=== PATIENT | male | born 1930 | race Caucasian/White ===

== ENCOUNTER → 2017-01-11 | Outpatient (CLI) | payer MEDICARE, OTHER ==
--- NOTE | 2017-01-11 15:00 | ST Modified Barium Swallow ---
Recommendation - Recommendations Recommendations: 1. Recommend medical team discuss options for diet changes to reduce aspiration and risk of aspiration while maintaining nutrition and hydration. 2. Recommend speech therapy after discharge for dysphagia management. Medical Diagnoses - Medical Diagnoses Medical Diagnosis Description & ICD-10 Code(s): Dysphagia Other Medical Diagnoses/Co-Morbidities: Prior strokes - most recent 2013. NPO since 01/08/17. - ICD-10 Tx Diagnosis Coding (1) Dysphagia as late effect of cerebrovascular accident (CVA) ICD-10 Code(s): I69.391 - DYSPHAGIA FOLLOWING CEREBRAL INFARCTION (2) Dysphagia, oral phase ICD-10 Code(s): R13.11 - DYSPHAGIA, ORAL PHASE (3) Dysphagia, oropharyngeal ICD-10 Code(s): R13.12 - DYSPHAGIA, OROPHARYNGEAL PHASE (4) Dysphagia, pharyngeal ICD-10 Code(s): R13.13 - DYSPHAGIA, PHARYNGEAL PHASE ST Modified Barium Swallow - General Date: 01/11/17 Referring Physician: Dr. Moffett (attending) Risks/Precautions: Falls, Aspiration Date of Onset: 01/08/17 Reason for Referral: dysphagia - History History obtained from: Other - EMR, report from [facility] transfer services and physician (phone consult 01/10/17) -: Medical - Patient admitted to [facility] for pneumonia, chest CT revealed concern for aspiration. Patient had prior stroke with residual expressive aphasia. Severely limited speech - only able to answer "yes ". History of speech therapy for aphasia. PMHx: prostate CA (recovered), strokes. Medications: levaquin, zetia, pravacol, claritin, flonase, lovenox, ibuprofen, tylenol, refresh, lidoderm, zosyn. Allergies: None reported. - Functional Status Prior Functional Status: INDEPENDENT: feeding. DEFICIT: communication Current Functional Limitations: communication, feeding - Subjective Patient/caregiver goal(s): r/o aspiration Speech Intelligibility: Aphasic - limited verbal responses - produced "yes" and "thank you" Current Nutritional Means: NPO Current PO diet: Regular - reported regular diet at home Current symptoms: Pneumonia Pain: 0/5 - Objective Assessment: Upright, Left Lateral - Food Trials Used Food trials used: Thin liquids, Honey-thickened liquids, Dickens thick liquids, Pureed, Soft solids The patient: fed by ST - Oral-Motor Skills Velo-pharyngeal function: Not assessed - Assessment Oral prep: Mildly Impaired Labial closure: Reduce closure Leakage: Anterior - with cup sips; able to acheive complete closure with straw Mastication: Adequate Lingual Movement: Normal - for this procedure Oral stage: Moderately Impaired - Pharyngeal Stage Initiation of Pharyngeal Stage Reflex: Delayed Decreased laryngeal elevation: Yes Reduced Velopharyngeal Closure: no Reduced pressure generation: Yes reduced tongue-based retraction: Yes Pre-swallow pooling in valleculae: Mild Pre-Swallow pooling in pyriforms: None Reduced Thyro-Hyoid approximation: Yes Reduced epiglottic excursion: Yes Reduced pharyngeal peristalsis/contraction: Yes Multiple Swallows with: Effective Post-swallow residulas vallecular: None Post-Swallow residuals in pyriforms: None Reduced Cricopharyngeal opening: No - Esophageal Stage Cricopharyngeal Function: Normal - Fall Risk Assessment Medications/Conditions that increase fall risks include: Antidepressants, sedatives, anti-arrhythmic, diuretic, benzodiazipenes, neuroleptics. BP regulation problems, cardiac problems, balance or gait deficits, neurological problems. Is patient considered at risk for falls: no Fall Risk Actions Taken: Pt physician notified - Behavioral Observations During evaluation process patient: was pleasant - Treatment / Educational Needs: Treatment/Education Needs: Treatment consisted of patient education on the role of the Speech Pathologist. Patient's plan of care and golas were communicated as well as scheduling and attendance policies. Recommendations for initial home program were shared. Patient demonstrated understanding and verbalized agreement. - Impression/Summary Laryngeal Penetration: Yes - silent penetration with thin by spoon & straw, nectar by straw, during swallow, after swallow Tracheal Aspiration: yes - with thin by straw sip, silent, during swallow, after swallow Productive cough: No Effective Clearing: no Patient presents with: Oral stage dysphagia, Pharyngeal stage dysph., Oral- Pharyngeal dysph., Severe Risk of Aspiration: Severe Risk of nutritional compromise: Severe Evaluation and Findings: Patient presents with impaired swallow resulting in penetration and aspiration. Patient unable to drink from cup without anterior spill. Trialed spoon and straw sip during study. THIN LIQUIDS: Demonstrated penetration with spoon sip and aspiration with straw sip. NECTAR THICK LIQUIDS : Penetration but no aspiration with straw sip. HONEY THICK LIQUIDS: No penetration or aspiration, however patient only able to use spoon sips (honey too thick to drink from straw). Honey has least risk of aspiration but is less hydrating and some evidence indicates patients on honey thick liquids have increased pneumonia (possibly because it's harder to clear if aspirated). PUREE : Patient demonstrated timely swallow with no residuals with pudding consistency. SOFT SOLIDS: Adequate chewing, no residuals with spontaneous second swallow. - Recommendations NPO: no Strict aspiration precautions: Yes Pt/Family education and followup with MD: Yes Dysphagia therapy with RESIDENT INSPECTOR: yes, dysphagia therapy - after discharge Recommended techniques: Fully Upright During Meal, Small Bites and Sips, Alternate Bites/Sips Supervision: Constant, requires assistance - would benefit from careful hand feeding to reduce risk of aspiration Other recommendations: DIET RECOMMENDATIONS: Recommend physician consider either thin liquids via spoon sip (no straws), nectar liquid liquids (will allow patient to continue using straw which appears to be preferred), or honey thick liquids via spoon with increased liquid intake as less hydrating. Discussed results and recommendations with Dr. Arita - physician to discuss options with family. Please contact Speech-Language Pathologist Guillermina Monsalve at [phone] with any questions. Thank you for allowing us to serve this patient. - Time Total Time: 15 - Plan of Care Strategies to optimize patient understanding include:: ongoing assessment of educational needs, implementation of educational strategies, and re-education. - - -: Thank you for the opportunity to work with this patient and his/her family. Should you have any questions about this patient's plan or progress, I can be reached at [phone]. Charge G Code? - - -: Yes ST F.L. Impairment Category - Rationale Based On Rationale Based On: Clin Find., Obj Measures - Swallowing Current G8996: CL 60-79% Impaired Goal G8997: CL 60-79% Impaired Discharge G8998: CL 60-79% Impaired - Spoken Language Expression Current G9162: None Goal G9163: None Discharge G9164: None
--- NOTE | 2017-01-14 09:04 | RADIOLOGY REPORT (SQ) ---
EXAM DESCRIPTION: MARIA L SWALLOW COMPLETED DATE/TIME: 01/11/2017 1:26 pm REASON FOR STUDY: DYSPHAGIA (R13.10)DYSPHAGIA FOLLOWING CVA I69.391 R13.10 DYSPHAGIA, UNSPECIFIED COMPARISON: None. TECHNIQUE: Videofluoroscopic swallowing examination was performed in conjunction with speech patholo gy. Videofluoroscopic imaging was obtained and reviewed and these are the findings: RADIATION DOSE: TOTAL FLUOROSCOPY TIME: 2 MIN 9 SECONDS LIMITATIONS: None FINDINGS: The patient was brought into the fluoro room and placed upright on a modified barium swall ow chair. The patient was then given multiple consistencies mixed with barium to swallow under live fluoroscopic video guidance. According to the Speech Pathologist there was laryngeal penetration wit h multiple consistencies. Tracheal aspiration was seen with thin liquids and post swallow residual ma terials. Mild oral and pharyngeal phase delay with premature spillage is noted. Mild post swallow r esiduals seen. Please see speech pathology report for further details and recommendations. IMPRESSION: LARYNGEAL PENETRATION MULTIPLE CONSISTENCIES AND TRACHEAL ASPIRATION WITH THIN LIQUIDS A ND POST SWALLOW RESIDUALS. PLEASE SEE SPEECH PATHOLOGIST REPORT FOR OTHER FINDINGS AND RECOMMENDATION S. COMMENT: Quality ID [id number]: Final reports for procedures using fluoroscopy that document radiation exp osure indices, or exposure time and number of fluorographic images (if radiation exposure indices are not available) TECHNICAL DOCUMENTATION: JOB ID: [id number] [employer]- All Rights Reserved
== END ==
LOC: RAD 12:51
DX: R13.10 Dysphagia, unspecified (principal)
CPT/HCPCS: 74230; 92611; G8996; G8997; G8998

== ENCOUNTER 2017-08-22 16:07 | Emergency (ER) | payer MEDICARE, OTHER ==
--- NOTE | 2017-08-22 18:37 | ER Document Report ---
ED General - General Chief Complaint: Problem with Urinary Catheter Stated Complaint: CATHETER PROBLEM Time Seen by Provider: 08/22/17 18:19 Cannot obtain history due to: Dementia Notes: Patient is an 87-year-old male with a past medical history of advanced dementia , nonverbal, suprapubic catheter dependent due to recurrent urinary tract infections who presents with no urine output from the suprapubic catheter. Patient does still put urine out from his urethra. He was sent to the emergency department by his nursing facility for catheter change out. No apparent additional concerns. Patient is nonverbal and unable to provide any additional history. at the bedside states that he is not acting like he usually does when he has a urinary tract infection. TRAVEL OUTSIDE OF THE [place] IN LAST 30 DAYS: No - Related Data Allergies/Adverse Reactions: No Known Allergies Allergy (Verified 08/22/17 17:40) Past Medical History - General Information source: Relative Cannot obtain history due to: Dementia - Social History Smoking Status: Former Smoker Frequency of alcohol use: None Drug Abuse: None Lives with: [facility] Family History: Reviewed & Not Pertinent Patient has suicidal ideation: No Patient has homicidal ideation: No Renal/ Medical History: Denies: Hx Peritoneal Dialysis Review of Systems - Review of Systems -: Yes ROS unobtainable due to patient's medical condition Physical Exam - Vital signs Vitals: Temp Pulse Resp BP Pulse Ox 98.7 F 79 18 113/46 L 95 08/22/17 16:15 08/22/17 16:15 08/22/17 16:15 08/22/17 16:15 08/22/17 16:15 Interpretation: Normal Notes: PHYSICAL EXAMINATION: GENERAL: No acute distress HEAD: Atraumatic, normocephalic. EYES: Pupils equal round and reactive to light, extraocular movements intact, sclera anicteric, conjunctiva are normal. ENT: nares patent, oropharynx clear without exudates. Moderately dry mucous membranes. NECK: Normal range of motion, supple without lymphadenopathy LUNGS: Breath sounds clear to auscultation bilaterally and equal. No wheezes rales or rhonchi. HEART: Regular rate and rhythm without murmurs ABDOMEN: Soft, nontender, normoactive bowel sounds. No guarding, no rebound. No masses appreciated. Suprapubic catheter in place without surrounding erythema or purulent drainage. EXTREMITIES: Normal range of motion, no pitting or edema. No cyanosis. NEUROLOGICAL: No focal neurological deficits. Moves all extremities spontaneously. PSYCH: Non-verbal SKIN: Warm, Dry, normal turgor, no rashes or lesions noted. Course - Re-evaluation Re-evalutation: 08/22/17 18:36 Patient presents with a suprapubic catheter that is no longer functioning. Patient is nonverbal and apparently has no additional concerns per family. Patient is not at risk for urinary obstruction as he does still pass urine freely from his urethra into the diaper and had a superpubic catheter placed for concerns of recurrent urinary tract infections. The catheter is been in place for approximately 1 month. Will attempt to replace the catheter at the bedside. No urology available. 08/22/17 20:07 Unfortunately we do not have any available suprapubic catheters that would fit the patient's tube or the next 2 sizes. I explained this to the at the bedside and we have agreed to place a Louie catheter for the patient's comfort, leaving the existing suprapubic catheter in place so as to not allow the tract to close and then have an outpatient follow-up for a replacement of the suprapubic catheter as well as removal of the current Louie catheter. Urinalysis obtained as a clean-catch from the inserted Louie catheter shows obvious signs of infection. Patient was started on a seven-day course of cephalexin. At this time will discharge with return precautions and follow-up recommendations. Verbal discharge instructions given a the bedside and opportunity for questions given. Medication warnings reviewed. is in agreement with this plan and has verbalized understanding of return precautions and the need for primary care follow-up in the next 24-72 hours. - Vital Signs Vital signs: Temp Pulse Resp BP Pulse Ox 98.7 F 79 18 113/46 L 95 08/22/17 16:15 08/22/17 16:15 08/22/17 16:15 08/22/17 16:15 08/22/17 16:15 - Laboratory Laboratory results interpreted by me: 08/22/17 22:15 Urine Protein 100 H Urine Blood LARGE H Ur Leukocyte Esterase LARGE H Discharge - Discharge Clinical Impression: Malfunction of indwelling urinary catheter Qualifiers: Encounter type: initial encounter Qualified Code(s): T83.011A - Breakdown ( mechanical) of indwelling urethral catheter, initial encounter Catheter-associated urinary tract infection Qualifiers: Indwelling urinary catheter type: indwelling urethral catheter Encounter type: initial encounter Qualified Code(s): T83.511A - Infection and inflammatory reaction due to indwelling urethral catheter, initial encounter; N39.0 - Urinary tract infection, site not specified; N39.0 - Urinary tract infection, site not specified Condition: Good Disposition: HOME, SELF-CARE Additional Instructions: Unfortunately we do not have any improper sizes of suprapubic catheters to replace your 's catheter a Louie catheter has been placed to provide comfort and can be removed once a suprapubic catheter is available for replacement of the existing catheter. The urine obtained from the Louie catheter does show an obvious infection and he has been started on antibiotics. Please follow-up with his urologist for proper placement of the suprapubic catheter. Prescriptions: Cephalexin Monohydrate [Keflex 500 mg Capsule] 500 mg PO Q6H 7 Days capsule Referrals: KASEY KENDRICK MD [Primary Care Provider] - Follow up in 3-5 days
[2017-08-22 23:10] LABS: APPEARANCE,URINE CLOUDY; BILIRUBIN,URINE NEGATIVE (NEGATIVE); COLOR,URINE YELLOW; GLUCOSE, URINE NEGATIVE (NEGATIVE); KETONES,URINE NEGATIVE (NEGATIVE); LEUKOCYTE ESTERASE,URINE LARGE (NEGATIVE); NITRITE,URINE NEGATIVE (NEGATIVE); PROTEIN,URINE 100 mg/dL (NEGATIVE); URINE SPECIFIC GRAVITY 1.015; UROBILINOGEN,URINE NEGATIVE mg/dL (<2.0)
[2017-08-22] MEDS ORDERED: CEPHALEXIN 500 MG CAPSULE PO ONE (23:28)
[2017-08-23 00:51] VITALS: BP 102/55
== END 2017-08-23 01:15 | disposition home or self-care (01) ==
LOC: ER 16:07
DX: T83.011A Breakdown (mechanical) of indwelling urethral catheter, initial encounter (principal); T83.511A Infection and inflammatory reaction due to indwelling urethral catheter, initial encounter; N39.0 Urinary tract infection, site not specified; Z87.891 Personal history of nicotine dependence
CPT/HCPCS: 99284; 51702; 36415; 87086; 87088; 81001; 87186; A9270

== ENCOUNTER 2017-08-23 10:30 | Emergency (ER) | payer MEDICARE, OTHER ==
--- NOTE | 2017-08-23 11:48 | ER Document Report ---
ED GI/ - General Mode of Arrival: Medic Information source: Emergency Med Personnel, [facility] Records Cannot obtain history due to: Dementia TRAVEL OUTSIDE OF THE [place] IN LAST 30 DAYS: No - General Chief Complaint: Problem with Urinary Catheter Stated Complaint: GROIN PAIN Time Seen by Provider: 08/23/17 10:54 Notes: Patient is an 87 year old male with advanced dementia that presents to the emergency department today after his halfway noticed blood coming from his suprapubic catheter. Patient was here yesterday for no urinary output out of suprapubic catheter. Patient is currently on Keflex for a UTI. History is limited secondary to patient's dementia. (ZAID KIMBLE) - Related Data Allergies/Adverse Reactions: No Known Allergies Allergy (Verified 08/22/17 17:40) Past Medical History - General Information source: [facility] Records Cannot obtain history due to: Dementia - Social History Smoking Status: Former Smoker Cigarette use (# per day): No Frequency of alcohol use: None Drug Abuse: None Lives with: [facility] Family History: Reviewed & Not Pertinent Review of Systems - Review of Systems -: Yes ROS unobtainable due to patient's medical condition - demented, non- verbal according to records Physical Exam - Vital signs Vitals: Temp Pulse Resp BP Pulse Ox 98.2 F 87 14 106/53 L 93 08/23/17 10:46 08/23/17 10:46 08/23/17 10:46 08/23/17 10:46 08/23/17 10:46 - Notes Notes: PHYSICAL EXAM GENERAL: Alert, does not appear to be in pain until suprapubic catheter was flushed. HEAD: Normocephalic, atraumatic. EYES: Pupils equal, round, and reactive to light. Extraocular movements intact. ENT: Oral mucosa moist, tongue midline. NECK: Full range of motion. Supple. Trachea midline. LUNGS: No respiratory distress. ABDOMEN: Soft, non-tender. Non-distended. Suprapubic catheter in place. Bowel sounds present in all 4 quadrants. MALE GENITOURINARY: No house catheter in place. Hypospadias with blood at the tip of the urethra. Blood and sediment in the suprapubic catheter. Moderate sized clot flushed out with initial suprapubic catheter flushing. Suprapubic catheter flushed using 300 mL of normal saline, well-tolerated, urinating freely after flush. EXTREMITIES: Moves all 4 extremities spontaneously. No edema. No cyanosis. NEUROLOGICAL: Alert, disoriented consistent with dementia history. PSYCH: Pleasant, able to state "yeah" when asked if in pain, does not answer any other questions, advanced dementia at baseline according to records. SKIN: Warm, dry, normal turgor. No rashes or lesions noted. (ZAID KIMBLE) - Re-evaluation Re-evalutation: 08/23/17 12:02 Oddly the patient only has a suprapubic catheter, there is no urethral House catheter. Patient is draining urine through his urethra. There is no evidence of obstruction, there is a large clot at the urethral meatus. I did irrigate the suprapubic catheter with 300 mL's of saline, a moderate-sized clot was obtained and then the rest of the irrigant drained without difficulty. Patient only appeared uncomfortable while he was actively irrigating it, that he started urinating through his urethra without any difficulty. Patient will be discharged back to the halfway with instructions to irrigate the suprapubic catheter with 300 mL of saline every 8 hours. Patient is still requested to follow-up with his urologist as soon as possible as an outpatient. Patient is already taking antibiotics for his urinary tract infection, cultures from the urine have already been sent as of last night. long-term currently denies that the patient arrived with a House catheter in place however the note from the physician who saw him last night states that he inserted a urethral catheter in addition to the suprapubic catheter. It is possible that this increased bleeding is caused from the fact that he ripped out his own catheter. 08/23/17 12:08 After discussing with the halfway again halfway states that at the halfway they noticed the House catheter was group home out so they just removed the rest of the way. They are not certain if he may have pulled the House catheter out partway after leaving or if while he was being changed it may have been pulled partway by an aide. This certainly helps to explain the hematuria. (BRYANT SERNA) - Vital Signs Vital signs: Temp Pulse Resp BP Pulse Ox 97.5 F 76 16 116/52 L 94 08/23/17 13:53 08/23/17 13:53 08/23/17 13:53 08/23/17 13:53 08/23/17 13:53 Discharge - Discharge Clinical Impression: Hematuria Qualifiers: Hematuria type: gross Qualified Code(s): R31.0 - Gross hematuria Malfunction of indwelling urinary catheter Qualifiers: Encounter type: subsequent encounter Qualified Code(s): T83.011D - Breakdown ( mechanical) of indwelling urethral catheter, subsequent encounter Condition: Stable Disposition: HOME, SELF-CARE Additional Instructions: Please irrigate his catheter using the syringe was sent with at least 300 mL of saline every 8 hours. You may do it more often if you notice it is obstructed. When we irrigated it here in the emergency department he had mild discomfort and immediately fluid drained out of his penis. You will likely see some clots come out of his penis. If the catheter stops draining and you cannot get any fluid out of his penis as well when you irrigate the catheter please return to the emergency department. Otherwise please follow-up with his urologist within the next 4 days. Referrals: KASEY KENDRICK MD [Primary Care Provider] - Follow up as needed Scribe Attestation: 08/23/17 19:42 I personally performed the services described in the documentation, reviewed and edited the documentation which was dictated to the scribe in my presence, and it accurately records my words and actions. (BRYANT SERNA) Scribe Documentation - Scribe Written by Scribe:: Adela Dudley, 08/23/2017 1310 acting as scribe for :: Anand
[2017-08-23 13:58] VITALS: BP 116/52
== END 2017-08-23 13:58 | disposition home or self-care (01) ==
LOC: ER 10:30
DX: T83.011A Breakdown (mechanical) of indwelling urethral catheter, initial encounter (principal); Y73.8 Miscellaneous gastroenterology and urology devices associated with adverse incidents, not elsewhere classified; Y84.6 Urinary catheterization as the cause of abnormal reaction of the patient, or of later complication, without mention of misadventure at the time of the procedure; N39.0 Urinary tract infection, site not specified; R31.0 Gross hematuria; F03.90 Unspecified dementia, unspecified severity, without behavioral disturbance, psychotic disturbance, mood disturbance, and anxiety; Z87.891 Personal history of nicotine dependence
CPT/HCPCS: 99283

== ENCOUNTER 2017-11-20 02:46 | Inpatient (IN) | payer MEDICARE, OTHER ==
[2017-11-20] MEDS ORDERED: ROCURONIUM BROMIDE INJ 50 MG/5 ML VIAL IV ONE ×2 (02:53→12:40)
[2017-11-20] MEDS ORDERED: ETOMIDATE INJ/PF 20 MG/10 ML SDV IV ONE (02:53)
[2017-11-20] MEDS ORDERED: MIDAZOLAM 2 MG/2 ML INJ ONE (02:53)
[2017-11-20] MEDS ORDERED: MIDAZOLAM 2 MG/2 ML INJ IV ONE (02:54)
[2017-11-20] MEDS ORDERED: MIDAZOLAM HCL 50 MG/100 ML RTUINJ IV PRN ×2 (02:54→09:45)
[2017-11-20] MEDS ORDERED: ACETAMINOPHEN 650 MG SUPP.RECT PR ONE (02:55)
[2017-11-20] MEDS ORDERED: MIDAZOLAM HCL 50 MG/100 ML RTUINJ IV ONE (02:56)
[2017-11-20] MEDS ORDERED: VANCOMYCIN HCL INJ 1000 MG VIAL IV ONE (02:59)
[2017-11-20] MEDS ORDERED: PIPERACILLIN/TAZOBACTAM 4.5 GM VIAL IV ONE (02:59)
--- NOTE | 2017-11-20 02:59 | ER Document Report ---
ED General - General Chief Complaint: Respiratory Distress Stated Complaint: ALTERED MENTAL STATUS Time Seen by Provider: 11/20/17 02:53 Notes: Patient is a 7-year-old male who presents with sepsis and difficulty breathing. He has been treated for UTI over last several days. He does have a suprapubic catheter in place. When the paramedics arrived to the correction the patient's oxygen saturation was 60%. Paramedics reports that the correction said the patient is a full code. Patient is unresponsive and being manually ventilated by the paramedics when he arrived. TRAVEL OUTSIDE OF THE [place] IN LAST 30 DAYS: No - Related Data Allergies/Adverse Reactions: No Known Allergies Allergy (Verified 08/22/17 17:40) Past Medical History - Social History Smoking Status: Unknown if Ever Smoked Frequency of alcohol use: None Drug Abuse: None Family History: Reviewed & Not Pertinent - Past Medical History Cardiac Medical History: Reports: Hx Hypercholesterolemia Endocrine Medical History: Reports: Hx Diabetes Mellitus Type 2 Renal/ Medical History: Denies: Hx Peritoneal Dialysis Review of Systems - Review of Systems -: Yes ROS unobtainable due to patient's medical condition - Patient is unresponsive and unable to contribute Physical Exam - Vital signs Vitals: Temp Pulse Resp BP Pulse Ox 103.7 F H 140 H 45 H 99/50 L 90 L 11/20/17 02:46 11/20/17 02:46 11/20/17 02:46 11/20/17 02:46 11/20/17 02:46 - Notes Notes: General Appearance: Poorly responsive and does not follow commands., severe acute distress, no obvious discomfort. Vitals: reviewed, See vital signs table. Head: no swelling or tenderness to the head Eyes: PERRL, EOMI, Conjuctiva clear Mouth: Tacky mucous membranes Throat: No tonsillar inflammation, No airway obstruction, No lymphadenopathy Neck: Supple, no neck tenderness, No thyromegaly Lungs: No wheezing, No rales, No rhonci, No accessory muscle use, good air exchange bilaterally. Heart: Tachycardic rate, Regular rythm, No murmur, no rub Abdomen: Normal BS, soft, No rigidity, No abdominal tenderness, No guarding, no rebound, no abdominal masses, no organomegaly. Superpubic catheter in place. No redness or swelling around the catheter site. Extremities:, good pulses in all extremities, no swelling or tenderness in the extremities, no edema. Skin: warm, dry, appropriate color, no rash Neuro: The only command that can get the patient to follow his I asked him to open his eyes and he barely moves his eyelids. 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 He is almost completely unresponsive. Course - Re-evaluation Re-evalutation: 11/20/17 03:30 Patient comes from correction septic appearing with fever of 103 and hypotension and hypoxemia. He was very poorly responsive and hypoxic at times despite manual ventilation. We therefore intubated the patient. Report from the paramedics was at the correction said he was a full code. Current receiving IV fluids to support his blood pressure. I did speak with the and daughter who have just arrived. He said he does have a living will. Is not clear if he is truly full code or DNR as the daughter mentions that they think he is a DO NOT RESUSCITATE however they want him to remain on the ventilator and to receive eczema treatment including pressors at this time. 11/20/17 03:53 Patient's blood pressure remains low despite receiving IV fluids. I went back and spoke with and the daughter informed him that I think it is a low likelihood that he will pull-through this pain that he is 87-year-old old and already has a lot of comorbidities. They are understanding of this. They still want medicative treatment however the do not want CPR if his heart is to stop. Will make patient a DNR but not yet comfort care. 11/20/17 05:45 Central line was placed. Patient has been started on pressors. I did speak with Dr. Morillo, patient's primary care doctor, who agrees with the patient to the hospital. Antibiotics have been given. Patient's lung herrera remain clear. His blood pressure is improved with Levophed. His good capillary refill. Good peripheral pulses. 11/20/17 05:45 Dictation of this chart was performed using voice recognition software; therefore, there may be some unintended grammatical errors. - Vital Signs Vital signs: Temp Pulse Resp BP Pulse Ox 103.7 F H 140 H 16 95/53 L 100 11/20/17 02:46 11/20/17 02:46 11/20/17 04:46 11/20/17 04:45 11/20/17 04:46 - Laboratory Result Diagrams: 11/20/17 02:45 11/20/17 02:45 Laboratory results interpreted by me: 11/20/17 11/20/17 11/20/17 02:45 02:45 02:45 WBC 29.8 H RDW 15.0 H Plt Count 532 H Seg Neuts % (Manual) 93 H Lymphocytes % (Manual) 6 L Monocytes % (Manual) 1 L Abs Neuts (Manual) 27.7 H Chloride 108 H Glucose 136 H Lactic Acid 3.4 H Direct Bilirubin 0.5 H Total Protein 5.7 L Albumin 2.9 L Urine Protein Ur Leukocyte Esterase Urine Ascorbic Acid 11/20/17 02:45 WBC RDW Plt Count Seg Neuts % (Manual) Lymphocytes % (Manual) Monocytes % (Manual) Abs Neuts (Manual) Chloride Glucose Lactic Acid Direct Bilirubin Total Protein Albumin Urine Protein >=500 H Ur Leukocyte Esterase LARGE H Urine Ascorbic Acid 20 H - EKG Interpretation by Me Additional EKG results interpreted by me: 11/20/17 02:58 EKG is reviewed and interpreted by me. EKG shows sinus tachycardia with rate of 126 bpm. Patient does not have any ST segment elevation. He does have findings consistent with right bundle branch block. [place] interval is within normal range. QRS duration QTc intervals are prolonged. No old EKG available for comparison. 11/20/17 03:00 Procedures - Central Line Left Internal jugular Consent obtained: Yes - verbal from Central line pre-insertion: Chloraprep applied Central line lumen type: Triple Anesthetic type: 1% Lidocaine mL's of anesthesia: 2 Ultrasound guided: Yes CM at insertion site: 17 Line secured with sutures: Yes Central line post-insertion: Blood return from lumens, Biopatch applied, Sutured , Sterile dressing applied, Position confirmed w/ CXR Number of attempts: 1 Complications: No Critical Care Note - Critical Care Note Total time excluding time spent on procedures (mins): 45 Comments: Critical care time for the patient not including time spent on procedures approximately 45 minutes due to frequent re-evaluations and management of septic shock. Discharge - Discharge Clinical Impression: Septic shock Sepsis Qualifiers: Sepsis type: sepsis due to unspecified organism Qualified Code(s): A41.9 - Sepsis, unspecified organism Respiratory failure Qualifiers: Chronicity: acute Respiratory failure complication: hypoxia Qualified Code(s): J96.01 - Acute respiratory failure with hypoxia Condition: Stable Disposition: ADMITTED INPATIENT Admitting Provider: [facility] Admitted: ICU
[2017-11-20 03:11] LABS: VENOUS BLOOD BASE EXCESS -1.6 mmol/L; VENOUS BLOOD PCO2 43.5 mmHg (35-63); VENOUS BLOOD PH 7.36 (7.30-7.42)
[2017-11-20 03:12] LABS: HEMATOCRIT 46.7 % (37.9-51.0); HEMOGLOBIN 15.3 g/dL (13.5-17.0); MEAN CORPUSCULAR HEMOGLOBIN 28.8 pg (27.0-33.4); MEAN CORPUSCULAR HGB CONC 32.8 g/dL (32.0-36.0); MEAN CORPUSCULAR VOLUME 88 fl (80-97); PLATELET COUNT 532 10^3/uL (150-450); RED BLOOD COUNT 5.32 10^6/uL (4.35-5.55); WHITE BLOOD COUNT 29.8 10^3/uL (4.0-10.5)
--- NOTE | 2017-11-20 03:13 | RADIOLOGY REPORT (SQ) ---
EXAM DESCRIPTION: CHEST SINGLE VIEW CLINICAL HISTORY: fever COMPARISON: None. FINDINGS: Single frontal view of the chest. Endotracheal tube with tip 4 cm above the amanda. NG tube with tip and side-port below the diaphragm. Heart is not enlarged. No pneumothorax. Low lung volumes. Streaky bibasilar opacities. Right-sided skin fold. No acute osseous abnormality. Upper abdominal soft tissues are unremarkable. IMPRESSION: 1. Low lung volumes with streaky bibasilar opacities which may be related to atelectasis however developing pneumonic process could produce a similar appearance. 2. Visualized tubes and lines in appropriate radiographic position.
[2017-11-20 03:14] LABS: APPEARANCE,URINE TURBID; COLOR,URINE LIGHT YELLOW; GLUCOSE, URINE NEGATIVE (NEGATIVE)
[2017-11-20 03:15] LABS: BILIRUBIN,URINE NEGATIVE (NEGATIVE); KETONES,URINE NEGATIVE (NEGATIVE); NITRITE,URINE NEGATIVE (NEGATIVE); PROTEIN,URINE >=500 mg/dL (NEGATIVE); URINE SPECIFIC GRAVITY 1.021; UROBILINOGEN,URINE NEGATIVE mg/dL (<2.0)
[2017-11-20 03:16] LABS: LEUKOCYTE ESTERASE,URINE LARGE (NEGATIVE)
[2017-11-20 03:17] LABS: TRIPLE PHOSPHATE CRYSTAL,URINE FEW /HPF
[2017-11-20 03:18] LABS: ALANINE AMINOTRANSFERASE 39 U/L (21-72); ALBUMIN 2.9 g/dL (3.5-5.0); ALKALINE PHOSPHATASE 105 U/L (38-126); ANION GAP 10 (5-19); ASPARTATE AMINO TRANSFERASE 23 U/L (17-59); BILIRUBIN,DIRECT 0.5 mg/dL (0.0-0.4); BILIRUBIN,TOTAL 0.8 mg/dL (0.2-1.3); BLOOD UREA NITROGEN 18 mg/dL (7-20); CALCIUM 9.3 mg/dL (8.4-10.2); CARBON DIOXIDE 23 mmol/L (22-30); CHLORIDE 108 mmol/L (98-107); GLUCOSE 136 mg/dL (75-110); POTASSIUM 4.2 mmol/L (3.6-5.0); SODIUM 141.1 mmol/L (137-145); TOTAL PROTEIN 5.7 g/dL (6.3-8.2)
[2017-11-20 03:35] LABS: ABSOLUTE LYMPHOCYTES# (MANUAL) 1.8 10^3/uL (0.5-4.7); ABSOLUTE MONOCYTES # (MANUAL) 0.3 10^3/uL (0.1-1.4); ABSOLUTE NEUTROPHILS# (MANUAL) 27.7 10^3/uL (1.7-8.2); BASOPHILS % (MANUAL) 0 % (0-2); EOSINOPHILS % (MANUAL) 0 % (0-6); LYMPHOCYTES % (MANUAL) 6 % (13-45); MONOCYTES % (MANUAL) 1 % (3-13); SEGMENTED NEUTROPHILS % (MAN) 93 % (42-78); TOTAL CELLS COUNTED 100
[2017-11-20 03:42] LABS: ANISOCYTOSIS SLIGHT; PLATELET CLUMPS PRESENT; PLATELET COMMENT ADEQUATE; PLATELET GIANT PRESENT; PLATELET LARGE PRESENT; POIKILOCYTOSIS SLIGHT; TEAR DROP CELLS 1+; TOXIC GRANULATION 1+
[2017-11-20] MEDS ORDERED: DEXTROSE 5%-WATER 250 ML with NOREPINEPHRINE BITARTRATE 4 MG IV PRN ×2 (03:50)
[2017-11-20] MEDS ORDERED: NOREPINEPHRINE BITARTRATE INJ/PF 4 MG/4 ML SDV IV ONE ×2 (03:56→21:32)
--- NOTE | 2017-11-20 05:38 | RADIOLOGY REPORT (SQ) ---
EXAM DESCRIPTION: CHEST SINGLE VIEW CLINICAL HISTORY: central line placement COMPARISON: 11/20/2017 FINDINGS: Single frontal view of the chest. Endotracheal tube and NG tube are stable. Interval placement of left IJ central venous catheter with tip overlying the SVC. Interval increase in right pleural effusion. No pneumothorax. Small left pleural effusion. Heart is not enlarged. No new osseous abnormalities. Upper abdominal soft tissues are unremarkable. IMPRESSION: 1. Left IJ central venous catheter with tip overlying the SVC. Remaining tubes and lines are in stable position. 2. Interval increase in moderate right and small left pleural effusion.
[2017-11-20 08:21] LABS: PHOSPHORUS 2.1 mg/dL (2.5-4.5)
[2017-11-20 08:24] LABS: AMYLASE < 30 U/L (30-110)
[2017-11-20 08:34] LABS: CREATINE KINASE MB 1.93 ng/mL (<4.55); TROPONIN I 0.082 ng/mL
[2017-11-20 08:37] LABS: FREE T4 (FREE THYROXINE) 1.16 ng/dL (0.78-2.19)
[2017-11-20] MEDS ORDERED: NORMAL SALINE INJ/PF 0.9% 10 ML SDV IV PRN (08:39)
[2017-11-20 08:51] LABS: THYROID STIMULATING HORMONE 1.17 uIU/mL (0.47-4.68)
[2017-11-20 08:55] LABS: ARTERIAL BLOOD BASE EXCESS -4.3 mmol/L; ARTERIAL BLOOD FIO2 60%; ARTERIAL BLOOD H2CO3 0.95 mmol/L (1.05-1.35); ARTERIAL BLOOD HCO3 19.3 mmol/L (20-26); ARTERIAL BLOOD O2 SATURATION 92.1 % (94-98); ARTERIAL BLOOD PCO2 31.6 mmHg (35-45); ARTERIAL BLOOD PO2 61.7 mmHg (80-100); ARTERIAL BLOOD TOTAL CO2 20.2 mmol/L (23-27)
[2017-11-20] MEDS ORDERED: DEXTROSE 5%-WATER 250 ML with VASOPRESSIN 100 UNIT IV PRN ×2 (09:48)
[2017-11-20] MEDS: DEXTROSE 5%-WATER 250 ML with NOREPINEPHRINE BITARTRATE 4 MG IV PRN ×4 (10:38→16:20)
[2017-11-20] MEDS: NORMAL SALINE 1000 ML 1,000 ML IV PRN ×2 (10:38→17:53)
[2017-11-20] MEDS: ERTAPENEM SODIUM 1 GM in NORMAL SALINE 50 ML IV SCH (10:38)
[2017-11-20] MEDS: ENOXAPARIN SODIUM INJ 40 MG/0.4 ML DISP.SYRIN SUBCUT SCH (10:39)
--- NOTE | 2017-11-20 13:09 | PDOC CONSULTATION ---
Consultation Consult Date: 11/20/17 Attending physician:: KASEY KENDRICK Consult reason:: Acute on chronic respiratory failure History of Present Illness Admission Date/PCP: 11/20/17 06:09 KASEY KENDRICK MD History of Present Illness: RONAK JOYNER is a 87 year old male Resident of [facility] was found down for unknown amount of time was subsequently brought to the emergency room unresponsive and was intubated patient's had a long history of CVAs was not particularly interactive with his environment prior to these events.He is currently intubated and sedated in the ICU Past Medical History Cardiac Medical History: Reports: Hyperlipidema Endocrine Medical History: Reports: Diabetes Mellitus Type 2 Social History Information Source: Relative, COUNT INCLUDES THE [facility] Records Smoking Status: Former Smoker Passive smoke exposure as: Both Hx Prescription Drug Abuse: No Do you have pets?: No Have you had any respiratory illnesses as a child?: No Have you had any recent respiratory illnesses?: No Have you travelled outside of [place] in the past 12 months?: No Family History Parental Family History Reviewed: No Children Family History Reviewed: No Sibling(s) Family History Reviewed.: No Medication/Allergy Home Medications: Cranberry Fruit Extract [Cranberry 200 mg Capsule] 400 mg PO DAILY 11/20/17 Finasteride [Proscar 5 mg Tablet] 5 mg PO DAILY 11/20/17 Fluticasone Propionate [Flonase Nasal [place] 50 Mcg/Novinger 16 gm] 1 spray NASL DAILY 11/20/17 Loratadine [Claritin 10 mg Tablet] 10 mg PO DAILY 11/20/17 Polyethylene Glycol 3350 [Miralax Powder 17 gm/Packet] 1 packet PO DAILY Polyvinyl Alcohol [Artificial Tears] 1 drop OU BID 11/20/17 Tamsulosin HCl [Flomax 0.4 mg Cap.sr] 0.4 mg PO DAILY 11/20/17 Allergies/Adverse Reactions: No Known Allergies Allergy (Verified 08/22/17 17:40) Review of Systems ROS unobtainable: Due to endotracheal tube, Due to mental status Physical Exam Vital Signs: Temp Pulse Resp BP Pulse Ox 99.6 F 140 H 23 H 92/55 L 94 11/20/17 05:39 11/20/17 02:46 11/20/17 07:45 11/20/17 07:45 11/20/17 07:45 General appearance: PRESENT: no acute distress, disheveled, well-developed, well -nourished. ABSENT: cooperative Head exam: PRESENT: atraumatic, normocephalic Eye exam: PRESENT: conjunctiva pale. ABSENT: EOMI, nystagmus, periorbital swelling, scleral icterus Mouth exam: PRESENT: dry mucosa, moist, tongue midline, other - ET tube in place Neck exam: ABSENT: carotid bruit, JVD, lymphadenopathy, thyromegaly, tracheal deviation, tracheostomy Respiratory exam: PRESENT: decreased breath sounds, prolonged expiratory phas, rhonchi, symmetrical, unlabored. ABSENT: rales, retraction, stridor, tachypnea Cardiovascular exam: PRESENT: RRR, +S1, +S2, tachycardia Pulses: PRESENT: normal radial pulses GI/Abdominal exam: PRESENT: diminished bowel sounds, soft Extremities exam: ABSENT: clubbing, full ROM, joint swelling Musculoskeletal exam: ABSENT: ambulatory, deformity, dislocation, full ROM Neurological exam: ABSENT: awake, oriented to person Skin exam: PRESENT: dry, warm Results Laboratory Results: 11/20/17 11/20/17 11/20/17 06:50 07:42 07:42 Lactic Acid 2.6 H Phosphorus 2.1 L Magnesium 1.6 Ammonia < 8.7 L Amylase < 30 L Lipase 26.0 11/20/17 11/20/17 07:42 07:42 Creatine Kinase 133 CK-MB (CK-2) 1.93 Troponin I 0.082 Impressions: Chest X-Ray 11/20/17 05:19 IMPRESSION: 1. Left IJ central venous catheter with tip overlying the SVC. Remaining tubes and lines are in stable position. 2. Interval increase in moderate right and small left pleural effusion. Assessment & Plan - Diagnosis (1) Respiratory failure Qualifiers: Chronicity: acute Respiratory failure complication: hypoxia Qualified Code(s): J96.01 - Acute respiratory failure with hypoxia Is this a current diagnosis for this admission?: Yes Plan: Maintain current oxygenation and ventilation Labs- All tests 24 hr 11/20/17 08:30 ABG pH 7.40 ABG pCO2 31.6 L ABG pO2 61.7 L ABG O2 Saturation 92.1 L FiO2 60% (2) Septic shock Is this a current diagnosis for this admission?: Yes Plan: WBC 29,000 requiring vasopressor agents suspect aspiration pneumonitis (3) Pleural effusion, right Is this a current diagnosis for this admission?: Yes Plan: Moderate to large right-sided effusion with decreased breath sounds at the bases and in the lateral right chest wall family at this time does not want thoracentesis They would like to evaluate the proximal patient's progress over the next 24 hours - Time Total Critical Time (Minutes): 55
[2017-11-20 14:21] LABS: CREATINE KINASE MB 1.8 ng/mL (<4.55); TROPONIN I 0.073 ng/mL
--- NOTE | 2017-11-20 14:35 | PDOC H&P ---
History of Present Illness Admission Date/PCP: 11/20/17 06:09 KASEY KENDRICK MD History of Present Illness: RONAK JOYNER is a 87 year old male, patient is a resident of the custodial at [place], he was transferred from the custodial to the emergency room for evaluation of unresponsiveness, in the emergency room was evaluated he was found to be in septic shock. He was intubated now on mechanical ventilation, the white blood cell count was 29.8 thousand with a left shift, the ABG on FiO2 of 60%, pH 7.4, PO2 61.7, bicarbonate 19.3. Lactic acid 3.4 consistent with lactic acidosis. Patient is well-known to me he has a history of CVA, with indwelling suprapubic Louie catheter due to chronic urinary retention from combination of neurogenic bladder and enlarged prostate. He has a history of recurrent UTI, he recently was treated for UTI. No history could be obtained for this patient because he is mechanically ventilated the blood pressure recorded extremely low presently on intravenous vasopressor with norepinephrine. I had a long discussion with family, the spouse on grandchildren they agreed to DNR status for the patient and they are contemplating comfort care measures once family members arrived the source of the septic shock is most likely the urine Past Medical History Cardiac Medical History: Reports: Hyperlipidema Neurological Medical History: Reports: Ischemic CVA Endocrine Medical History: Reports: Diabetes Mellitus Type 2 Renal/ Medical History: Reports: Other - Indwelling Louie catheter due to BPH Social History Smoking Status: Former Smoker Frequency of Alcohol Use: None Hx Recreational Drug Use: No Hx Prescription Drug Abuse: No Family History Family History: Reviewed & Not Pertinent Parental Family History Reviewed: Yes Children Family History Reviewed: Yes Sibling(s) Family History Reviewed.: Yes Medication/Allergy Home Medications: Cranberry Fruit Extract [Cranberry 200 mg Capsule] 400 mg PO DAILY 11/20/17 Finasteride [Proscar 5 mg Tablet] 5 mg PO DAILY 11/20/17 Fluticasone Propionate [Flonase Nasal [place] 50 Mcg/[place] 16 gm] 1 spray NASL DAILY 11/20/17 Loratadine [Claritin 10 mg Tablet] 10 mg PO DAILY 11/20/17 Polyethylene Glycol 3350 [Miralax Powder 17 gm/Packet] 1 packet PO DAILY Polyvinyl Alcohol [Artificial Tears] 1 drop OU BID 11/20/17 Tamsulosin HCl [Flomax 0.4 mg Cap.sr] 0.4 mg PO DAILY 11/20/17 Allergies/Adverse Reactions: No Known Allergies Allergy (Verified 08/22/17 17:40) Review of Systems ROS unobtainable: Due to mental status Physical Exam Vital Signs: Temp Pulse Resp BP Pulse Ox 99.1 F 86 20 90/53 L 98 11/20/17 14:00 11/20/17 14:00 11/20/17 14:00 11/20/17 14:00 11/20/17 14:00 Intake & Output 11/19/17 11/20/17 11/21/17 06:59 06:59 06:59 Output Total 280 Balance -280 Weight 78.8 kg General appearance: PRESENT: other - Sedated and intubated Respiratory exam: PRESENT: clear to auscultation felipe Cardiovascular exam: PRESENT: +S1, +S2 GI/Abdominal exam: PRESENT: soft Neurological exam: PRESENT: other - Sedated and intubated Results Laboratory Results: 11/20/17 11/20/17 11/20/17 06:50 07:42 07:42 Carbonic Acid HCO3/H2CO3 Ratio ABG pH ABG pCO2 ABG pO2 ABG HCO3 ABG O2 Saturation ABG Base Excess FiO2 Lactic Acid 2.6 H Phosphorus 2.1 L Magnesium 1.6 Ammonia < 8.7 L Amylase < 30 L Lipase 26.0 TSH Free T4 11/20/17 11/20/17 07:42 08:30 Carbonic Acid 0.95 L HCO3/H2CO3 Ratio 20:1 ABG pH 7.40 ABG pCO2 31.6 L ABG pO2 61.7 L ABG HCO3 19.3 L ABG O2 Saturation 92.1 L ABG Base Excess -4.3 FiO2 60% Lactic Acid Phosphorus Magnesium Ammonia Amylase Lipase TSH 1.17 Free T4 1.16 11/20/17 11/20/17 11/20/17 07:42 07:42 13:10 Creatine Kinase 133 135 CK-MB (CK-2) 1.93 Troponin I 0.082 11/20/17 13:10 Creatine Kinase CK-MB (CK-2) 1.80 Troponin I 0.073 Impressions: Chest X-Ray 11/20/17 05:19 IMPRESSION: 1. Left IJ central venous catheter with tip overlying the SVC. Remaining tubes and lines are in stable position. 2. Interval increase in moderate right and small left pleural effusion. Assessment & Plan - Diagnosis (1) Septic shock Is this a current diagnosis for this admission?: Yes Plan: Patient is septic shock, presently on IV normal saline at 1 50 cc/h, intravenous norepinephrine infusion, antibiotic IV ertapenem to cover potential uropathogens including ESBL organisms because he is a custodial resident. (2) Hypotension Qualifiers: Hypotension type: unspecified hypotension type Qualified Code(s): I95.9 - Hypotension, unspecified Is this a current diagnosis for this admission?: Yes (3) Sepsis Qualifiers: Sepsis type: sepsis due to unspecified organism Qualified Code(s): A41.9 - Sepsis, unspecified organism Is this a current diagnosis for this admission?: Yes (4) Urinary tract infection Qualifiers: Urinary tract infection type: catheter-associated UTI Indwelling urinary catheter type: cystostomy catheter Encounter type: initial encounter Qualified Code(s): T83.510A - Infection and inflammatory reaction due to cystostomy catheter, initial encounter; N39.0 - Urinary tract infection, site not specified; N39.0 - Urinary tract infection, site not specified Is this a current diagnosis for this admission?: Yes (5) Acute hypoxemic respiratory failure Is this a current diagnosis for this admission?: Yes Plan: Presently on mechanical ventilation, initial vent setting in the chart, consult obtained from pulmonary
[2017-11-20] MEDS: LANSOPRAZOLE 30 MG TAB.RAP.DR PO SCH (16:26)
[2017-11-20] MEDS ORDERED: FUROSEMIDE INJ/PF 40 MG/4 ML SDV IV ONE (17:15)
[2017-11-20 19:41] LABS: CREATINE KINASE MB 1.2 ng/mL (<4.55); TROPONIN I 0.06 ng/mL
--- NOTE | 2017-11-20 22:37 | EKG REPORT ---
SEVERITY:- ABNORMAL ECG - SINUS TACHYCARDIA MULTIPLE ATRIAL PREMATURE COMPLEXES RBBB AND LPFB : Confirmed by: Bryan Martinez 20-Nov-2017 22:36:40
[2017-11-21] MEDS: NORMAL SALINE 1000 ML 1,000 ML IV PRN ×2 (00:55→05:53)
[2017-11-21] MEDS: DEXTROSE 5%-WATER 250 ML with NOREPINEPHRINE BITARTRATE 4 MG IV PRN ×4 (05:53→09:50)
[2017-11-21] MEDS: LANSOPRAZOLE 30 MG TAB.RAP.DR PO SCH (05:54)
[2017-11-21 06:15] LABS: ARTERIAL BLOOD BASE EXCESS 0.1 mmol/L; ARTERIAL BLOOD H2CO3 0.96 mmol/L (1.05-1.35); ARTERIAL BLOOD O2 SATURATION 97.7 % (94-98); ARTERIAL BLOOD PCO2 31.9 mmHg (35-45); ARTERIAL BLOOD PH 7.48 (7.35-7.45); ARTERIAL BLOOD PO2 94.3 mmHg (80-100); ARTERIAL BLOOD TOTAL CO2 23.9 mmol/L (23-27)
[2017-11-21 06:17] LABS: ARTERIAL BLOOD FIO2 45%
[2017-11-21 06:23] LABS: ABSOLUTE BASOPHILS # (AUTO) 0.4 10^3/uL (0.0-0.2); ABSOLUTE MONOCYTES (AUTO) 2.1 10^3/uL (0.1-1.4); ABSOLUTE NEUT (AUTO) 34.6 10^3/uL (1.7-8.2); EOSINOPHILS % (AUTO) 0.1 % (0-6); HEMATOCRIT 36.1 % (37.9-51.0); LYMPHOCYTES % (AUTO) 5.1 % (13-45); MEAN CORPUSCULAR HEMOGLOBIN 28.6 pg (27.0-33.4); MEAN CORPUSCULAR HGB CONC 32.8 g/dL (32.0-36.0); MEAN CORPUSCULAR VOLUME 87 fl (80-97); MONOCYTES % (AUTO) 5.4 % (3-13); RED BLOOD COUNT 4.15 10^6/uL (4.35-5.55); RED CELL DISTRIBUTION WIDTH 15.2 % (11.5-14.0); SEGMENTED NEUTROPHILS % (AUTO) 88.4 % (42-78); TOTAL CELLS COUNTED % (AUTO) 100 %
[2017-11-21 06:26] LABS: ALANINE AMINOTRANSFERASE 28 U/L (21-72); ALBUMIN 2.1 g/dL (3.5-5.0); ALKALINE PHOSPHATASE 81 U/L (38-126); ANION GAP 5 (5-19); ASPARTATE AMINO TRANSFERASE 14 U/L (17-59); BILIRUBIN,DIRECT 0.5 mg/dL (0.0-0.4); BILIRUBIN,TOTAL 0.7 mg/dL (0.2-1.3); BLOOD UREA NITROGEN 14 mg/dL (7-20); CALCIUM 8.1 mg/dL (8.4-10.2); CARBON DIOXIDE 25 mmol/L (22-30); CHLORIDE 108 mmol/L (98-107); GLUCOSE 150 mg/dL (75-110); POTASSIUM 3.5 mmol/L (3.6-5.0); SODIUM 138.4 mmol/L (137-145); TOTAL PROTEIN 4.3 g/dL (6.3-8.2)
--- NOTE | 2017-11-21 06:36 | RADIOLOGY REPORT (SQ) ---
EXAM DESCRIPTION: CHEST SINGLE VIEW CLINICAL HISTORY: SEPSIS COMPARISON: 11/20/2017 FINDINGS: Single frontal view of the chest. Endotracheal tube and NG tube are stable. Left IJ central venous catheter with tip overlying the SVC. Interval decrease in right pleural effusion. No pneumothorax. Small left pleural effusion. Heart is not enlarged. No new osseous abnormalities. Upper abdominal soft tissues are unremarkable. To skin folds overlie the right chest. IMPRESSION: 1. Small bilateral pleural effusions. Electronically signed by: Jose Ernandez 11/21/2017 5:35 AM
[2017-11-21 06:43] LABS: HEMOGLOBIN 11.9 g/dL (13.5-17.0)
[2017-11-21 06:46] LABS: PLATELET COUNT 449 10^3/uL (150-450)
[2017-11-21 06:53] LABS: WHITE BLOOD COUNT 39.1 10^3/uL (4.0-10.5)
[2017-11-21] MEDS: ERTAPENEM SODIUM 1 GM in NORMAL SALINE 50 ML IV SCH (10:38)
[2017-11-21] MEDS: ENOXAPARIN SODIUM INJ 40 MG/0.4 ML DISP.SYRIN SUBCUT SCH (10:38)
[2017-11-21] MEDS ORDERED: LORAZEPAM INJ 2 MG/1 ML VIAL IV PRN (14:24)
[2017-11-21] MEDS ORDERED: ACETAMINOPHEN 650 MG SUPP.RECT PR PRN (17:09)
--- NOTE | 2017-11-21 21:44 | PDOC PROGRESS REPORT ---
Subjective Progress Note for:: 11/21/17 Subjective:: Patient's condition is very poor, it was transitioned to comfort care by family today, he was taken off mechanical ventilation, patient is a DNR, he will be transferred to the floor. Reason For Visit: SEPTIC SHOCK, SEPSIS DUE TO UTI ASSOCIATED WITH Physical Exam Vital Signs: Temp Pulse Resp BP Pulse Ox 99.5 F 81 23 H 99/55 L 99 11/21/17 18:00 11/21/17 20:00 11/21/17 18:50 11/21/17 15:51 11/21/17 18:50 Intake & Output 11/20/17 11/21/17 11/22/17 06:59 06:59 06:59 Intake Total 4307 1808 Output Total 1885 525 Balance 2422 1283 Weight 79.7 kg Results Laboratory Results: 11/21/17 05:50 11/21/17 05:50 11/21/17 11/21/17 11/21/17 05:50 05:50 05:50 WBC 39.1 H* RBC 4.15 L Hgb 11.9 L D Hct 36.1 L MCV 87 MCH 28.6 MCHC 32.8 RDW 15.2 H Plt Count 449 Seg Neutrophils % 88.4 H Lymphocytes % 5.1 L Monocytes % 5.4 Eosinophils % 0.1 Basophils % 1.0 Absolute Neutrophils 34.6 H Absolute Lymphocytes 2.0 Absolute Monocytes 2.1 H Absolute Eosinophils 0.0 Absolute Basophils 0.4 H Carbonic Acid 0.96 L HCO3/H2CO3 Ratio 23:1 ABG pH 7.48 H ABG pCO2 31.9 L ABG pO2 94.3 ABG HCO3 23.0 ABG O2 Saturation 97.7 ABG Base Excess 0.1 FiO2 45% Sodium 138.4 Potassium 3.5 L Chloride 108 H Carbon Dioxide 25 Anion Gap 5 BUN 14 Creatinine 0.61 Est GFR ( Amer) > 60 Est GFR (Non-Af Amer) > 60 Glucose 150 H Calcium 8.1 L Total Bilirubin 0.7 AST 14 L ALT 28 Alkaline Phosphatase 81 Total Protein 4.3 L Albumin 2.1 L 11/20/17 11/20/17 11/20/17 07:42 07:42 13:10 Creatine Kinase 133 135 CK-MB (CK-2) 1.93 Troponin I 0.082 11/20/17 11/20/17 11/20/17 13:10 18:55 18:55 Creatine Kinase 84 CK-MB (CK-2) 1.80 1.20 Troponin I 0.073 0.060 Impressions: Chest X-Ray 11/21/17 06:00 IMPRESSION: 1. Small bilateral pleural effusions. Assessment & Plan - Diagnosis (1) Septic shock Is this a current diagnosis for this admission?: Yes (2) Hypotension Qualifiers: Hypotension type: unspecified hypotension type Qualified Code(s): I95.9 - Hypotension, unspecified Is this a current diagnosis for this admission?: Yes (3) Sepsis Qualifiers: Sepsis type: sepsis due to unspecified organism Qualified Code(s): A41.9 - Sepsis, unspecified organism Is this a current diagnosis for this admission?: Yes (4) Urinary tract infection Qualifiers: Urinary tract infection type: catheter-associated UTI Indwelling urinary catheter type: cystostomy catheter Encounter type: initial encounter Qualified Code(s): T83.510A - Infection and inflammatory reaction due to cystostomy catheter, initial encounter; N39.0 - Urinary tract infection, site not specified; N39.0 - Urinary tract infection, site not specified Is this a current diagnosis for this admission?: Yes (5) Acute hypoxemic respiratory failure Is this a current diagnosis for this admission?: Yes
--- NOTE | 2017-11-21 22:24 | PDOC PROGRESS REPORT ---
Subjective Progress Note for:: 11/21/17 Subjective:: intubated and sedated Reason For Visit: SEPTIC SHOCK, SEPSIS DUE TO UTI ASSOCIATED WITH Physical Exam Vital Signs: Temp Pulse Resp BP Pulse Ox 98.1 F 79 20 107/55 L 97 11/21/17 08:00 11/21/17 10:00 11/21/17 10:21 11/21/17 10:21 11/21/17 10:21 Intake & Output 11/20/17 11/21/17 11/22/17 06:59 06:59 06:59 Intake Total 4307 Output Total 1885 115 Balance 2422 -115 Weight 79.7 kg General appearance: PRESENT: no acute distress, disheveled, well-developed, well -nourished. ABSENT: cooperative Head exam: PRESENT: atraumatic, normocephalic Eye exam: PRESENT: conjunctiva pale. ABSENT: EOMI, nystagmus, periorbital swelling, scleral icterus Mouth exam: PRESENT: dry mucosa, neck supple, tongue midline, other - ET tube Neck exam: ABSENT: carotid bruit, JVD, lymphadenopathy, thyromegaly, tracheal deviation, tracheostomy Respiratory exam: PRESENT: decreased breath sounds, prolonged expiratory phas, rales, rhonchi, symmetrical, unlabored. ABSENT: retraction, stridor, tachypnea Cardiovascular exam: PRESENT: RRR, +S1, +S2 Pulses: PRESENT: normal radial pulses GI/Abdominal exam: PRESENT: diminished bowel sounds, soft Extremities exam: ABSENT: clubbing, full ROM, joint swelling, pedal edema Musculoskeletal exam: ABSENT: ambulatory, deformity, dislocation, full ROM Neurological exam: ABSENT: awake, oriented to person Skin exam: PRESENT: dry, warm Results Laboratory Results: 11/21/17 05:50 11/21/17 05:50 11/21/17 11/21/17 11/21/17 05:50 05:50 05:50 WBC 39.1 H* RBC 4.15 L Hgb 11.9 L D Hct 36.1 L MCV 87 MCH 28.6 MCHC 32.8 RDW 15.2 H Plt Count 449 Seg Neutrophils % 88.4 H Lymphocytes % 5.1 L Monocytes % 5.4 Eosinophils % 0.1 Basophils % 1.0 Absolute Neutrophils 34.6 H Absolute Lymphocytes 2.0 Absolute Monocytes 2.1 H Absolute Eosinophils 0.0 Absolute Basophils 0.4 H Carbonic Acid 0.96 L HCO3/H2CO3 Ratio 23:1 ABG pH 7.48 H ABG pCO2 31.9 L ABG pO2 94.3 ABG HCO3 23.0 ABG O2 Saturation 97.7 ABG Base Excess 0.1 FiO2 45% Sodium 138.4 Potassium 3.5 L Chloride 108 H Carbon Dioxide 25 Anion Gap 5 BUN 14 Creatinine 0.61 Est GFR ( Amer) > 60 Est GFR (Non-Af Amer) > 60 Glucose 150 H Calcium 8.1 L Total Bilirubin 0.7 AST 14 L ALT 28 Alkaline Phosphatase 81 Total Protein 4.3 L Albumin 2.1 L 11/20/17 11/20/17 11/20/17 07:42 07:42 13:10 Creatine Kinase 133 135 CK-MB (CK-2) 1.93 Troponin I 0.082 11/20/17 11/20/17 11/20/17 13:10 18:55 18:55 Creatine Kinase 84 CK-MB (CK-2) 1.80 1.20 Troponin I 0.073 0.060 Impressions: Chest X-Ray 11/21/17 06:00 IMPRESSION: 1. Small bilateral pleural effusions. Assessment & Plan - Diagnosis (1) Respiratory failure Qualifiers: Chronicity: acute Respiratory failure complication: hypoxia Qualified Code(s): J96.01 - Acute respiratory failure with hypoxia Is this a current diagnosis for this admission?: Yes Plan: Maintain current oxygenation and ventilation Labs- All tests 24 hr 11/20/17 08:30 ABG pH 7.40 ABG pCO2 31.6 L ABG pO2 61.7 L ABG O2 Saturation 92.1 L FiO2 60% (2) Septic shock Is this a current diagnosis for this admission?: Yes Plan: WBC 29,000 requiring vasopressor agents suspect aspiration pneumonitis (3) Pleural effusion, right Is this a current diagnosis for this admission?: Yes Plan: Moderate to large right-sided effusion with decreased breath sounds at the bases and in the lateral right chest wall family at this time does not want thoracentesis They would like to evaluate the proximal patient's progress over the next 24 hours - Time Total Critical Time (Minutes): 45 - Plan Summary Plan Summary: per family and PCP patient made comfort care concur
[2017-11-22] MEDS: NORMAL SALINE 1000 ML 1,000 ML IV PRN (01:45)
[2017-11-22 11:06] VITALS: BP 112/39
[2017-11-22] MEDS: MORPHINE SULFATE 10 MG/ML INJ IV PRN ×2 (16:03→22:48)
--- NOTE | 2017-11-22 21:10 | PDOC PROGRESS REPORT ---
Subjective Progress Note for:: 11/22/17 Subjective:: Patient's condition is very poor, it was transitioned to comfort care by family today, he was taken off mechanical ventilation, patient is a DNR, he will be transferred to the floor. Reason For Visit: SEPTIC SHOCK, SEPSIS DUE TO UTI ASSOCIATED WITH Physical Exam Vital Signs: Temp Pulse Resp BP Pulse Ox 99.5 F 70 19 112/39 L 92 11/21/17 18:00 11/22/17 08:00 11/22/17 18:05 11/22/17 09:30 11/22/17 18:05 Intake & Output 11/21/17 11/22/17 11/23/17 06:59 06:59 06:59 Intake Total 4307 1808 1186 Output Total 1885 975 575 Balance 2422 833 611 Weight 79.7 kg Results Laboratory Results: 11/21/17 05:50 11/21/17 05:50 11/20/17 08:15 Sputum Gram Stain - Final 11/20/17 11/20/17 11/20/17 07:42 07:42 13:10 Creatine Kinase 133 135 CK-MB (CK-2) 1.93 Troponin I 0.082 11/20/17 11/20/17 11/20/17 13:10 18:55 18:55 Creatine Kinase 84 CK-MB (CK-2) 1.80 1.20 Troponin I 0.073 0.060 Impressions: Chest X-Ray 11/21/17 06:00 IMPRESSION: 1. Small bilateral pleural effusions. Assessment & Plan - Diagnosis (1) Septic shock Is this a current diagnosis for this admission?: Yes (2) Hypotension Qualifiers: Hypotension type: unspecified hypotension type Qualified Code(s): I95.9 - Hypotension, unspecified Is this a current diagnosis for this admission?: Yes (3) Sepsis Qualifiers: Sepsis type: sepsis due to unspecified organism Qualified Code(s): A41.9 - Sepsis, unspecified organism Is this a current diagnosis for this admission?: Yes (4) Urinary tract infection Qualifiers: Urinary tract infection type: catheter-associated UTI Indwelling urinary catheter type: cystostomy catheter Encounter type: initial encounter Qualified Code(s): T83.510A - Infection and inflammatory reaction due to cystostomy catheter, initial encounter; N39.0 - Urinary tract infection, site not specified; N39.0 - Urinary tract infection, site not specified Is this a current diagnosis for this admission?: Yes (5) Acute hypoxemic respiratory failure Is this a current diagnosis for this admission?: Yes
[2017-11-23] MEDS: MORPHINE SULFATE 10 MG/ML INJ IV PRN ×3 (02:43→07:47)
[2017-11-23] MEDS: LORAZEPAM INJ 2 MG/1 ML VIAL IV PRN ×3 (02:43→07:47)
--- NOTE | 2017-11-25 20:28 | Death Summary ---
Summary Date : 11/23/17 Time of :: 08:14 Autopsy: No Resuscitation Status: Comfort Measures Only - Final Diagnosis (1) Septic shock Is this a current diagnosis for this admission?: Yes (2) Hypotension Is this a current diagnosis for this admission?: Yes (3) Sepsis Is this a current diagnosis for this admission?: Yes (4) Urinary tract infection Is this a current diagnosis for this admission?: Yes (5) Acute hypoxemic respiratory failure Is this a current diagnosis for this admission?: Yes (6) Personal history of cerebrovascular accident with current residual effects Is this a current diagnosis for this admission?: Yes (7) Personal history of malignant neoplasm of prostate Is this a current diagnosis for this admission?: Yes Hospital Course:: Patient with history of cerebr0 vascular accident with residual aphasia, history of prostate cancer complicated with retention of urine with indwelling suprapubic Louie catheter he was admitted for the management of septic shock requiring tracheal intubation with mechanical ventilation. He was treated empirically with IV antibiotic, vasopressor, he was managed in intensive care unit. After couple of days in intensive care unit family decided to convert his care to comfort care he was taken off mechanical ventilation and he was comfort care until .
--- NOTE | 2017-11-27 08:31 | PDOC PROGRESS REPORT ---
Subjective Progress Note for:: 11/22/17 Subjective:: intubated and sedated Reason For Visit: SEPTIC SHOCK, SEPSIS DUE TO UTI ASSOCIATED WITH Physical Exam Vital Signs: Temp Pulse Resp BP Pulse Ox 99.5 F 81 33 H 112/39 L 51 L 11/21/17 18:00 11/22/17 22:00 11/23/17 06:35 11/22/17 09:30 11/23/17 06:35 Intake & Output 11/22/17 11/23/17 11/24/17 06:59 06:59 06:59 Intake Total 1808 1186 Output Total 975 1100 Balance 833 86 General appearance: PRESENT: no acute distress Head exam: PRESENT: atraumatic, normocephalic Eye exam: PRESENT: conjunctiva pale. ABSENT: EOMI, nystagmus, periorbital swelling, scleral icterus Mouth exam: PRESENT: dry mucosa, neck supple, tongue midline Neck exam: ABSENT: carotid bruit, JVD, lymphadenopathy, thyromegaly Respiratory exam: PRESENT: decreased breath sounds, prolonged expiratory phas, rales, rhonchi, unlabored. ABSENT: retraction, stridor, tachypnea Cardiovascular exam: PRESENT: RRR, +S1, +S2 Pulses: PRESENT: normal radial pulses GI/Abdominal exam: PRESENT: diminished bowel sounds, soft Extremities exam: ABSENT: calf tenderness, clubbing, full ROM, joint swelling, pedal edema Musculoskeletal exam: ABSENT: ambulatory, deformity, dislocation, full ROM Neurological exam: ABSENT: alert, awake Skin exam: PRESENT: dry, warm Results Laboratory Results: 11/21/17 05:50 11/21/17 05:50 11/20/17 08:15 Sputum Gram Stain - Final 11/20/17 08:15 Sputum Sputum Culture - Final Staphylococcus Aureus Streptococcus Pneumoniae Normal Elyse Absent 11/20/17 11/20/17 11/20/17 07:42 07:42 13:10 Creatine Kinase 133 135 CK-MB (CK-2) 1.93 Troponin I 0.082 11/20/17 11/20/17 11/20/17 13:10 18:55 18:55 Creatine Kinase 84 CK-MB (CK-2) 1.80 1.20 Troponin I 0.073 0.060 Impressions: Chest X-Ray 11/21/17 06:00 IMPRESSION: 1. Small bilateral pleural effusions. Assessment & Plan - Diagnosis (1) Respiratory failure Qualifiers: Chronicity: acute Respiratory failure complication: hypoxia Qualified Code(s): J96.01 - Acute respiratory failure with hypoxia Is this a current diagnosis for this admission?: Yes Plan: plan comfort care (2) Septic shock Is this a current diagnosis for this admission?: Yes Plan: WBC 29,000 requiring vasopressor agents suspect aspiration pneumonitis (3) Pleural effusion, right Is this a current diagnosis for this admission?: Yes Plan: Moderate to large right-sided effusion with decreased breath sounds at the bases and in the lateral right chest wall family at this time does not want thoracentesis They would like to evaluate the proximal patient's progress over the next 24 hours - Time Total Critical Time (Minutes): 40
--- NOTE | 2017-11-27 08:34 | PDOC PROGRESS REPORT ---
Subjective Progress Note for:: 11/23/17 Subjective:: intubated and sedated Reason For Visit: SEPTIC SHOCK, SEPSIS DUE TO UTI ASSOCIATED WITH Physical Exam Vital Signs: Temp Pulse Resp BP Pulse Ox 99.5 F 81 33 H 112/39 L 51 L 11/21/17 18:00 11/22/17 22:00 11/23/17 06:35 11/22/17 09:30 11/23/17 06:35 Intake & Output 11/22/17 11/23/17 11/24/17 06:59 06:59 06:59 Intake Total 1808 1186 Output Total 975 1100 Balance 833 86 General appearance: PRESENT: no acute distress Head exam: PRESENT: atraumatic, normocephalic Eye exam: PRESENT: conjunctiva pale. ABSENT: EOMI, nystagmus, periorbital swelling Mouth exam: PRESENT: dry mucosa, neck supple, tongue midline Neck exam: ABSENT: carotid bruit, JVD, lymphadenopathy, thyromegaly, tracheal deviation, tracheostomy - [id number] Cardiovascular exam: PRESENT: RRR, +S1, +S2 Pulses: PRESENT: normal radial pulses GI/Abdominal exam: PRESENT: diminished bowel sounds, soft Neurological exam: ABSENT: awake, oriented to person - [id number] Skin exam: PRESENT: dry, warm - [id number] Results Laboratory Results: 11/21/17 05:50 11/21/17 05:50 11/20/17 08:15 Sputum Gram Stain - Final 11/20/17 08:15 Sputum Sputum Culture - Final Staphylococcus Aureus Streptococcus Pneumoniae Normal Elyse Absent 11/20/17 11/20/17 11/20/17 07:42 07:42 13:10 Creatine Kinase 133 135 CK-MB (CK-2) 1.93 Troponin I 0.082 11/20/17 11/20/17 11/20/17 13:10 18:55 18:55 Creatine Kinase 84 CK-MB (CK-2) 1.80 1.20 Troponin I 0.073 0.060 Impressions: Chest X-Ray 11/21/17 06:00 IMPRESSION: 1. Small bilateral pleural effusions. Assessment & Plan - Diagnosis (1) Respiratory failure Qualifiers: Chronicity: acute Respiratory failure complication: hypoxia Qualified Code(s): J96.01 - Acute respiratory failure with hypoxia Is this a current diagnosis for this admission?: Yes Plan: plan comfort care (2) Septic shock Is this a current diagnosis for this admission?: Yes Plan: WBC 29,000 requiring vasopressor agents suspect aspiration pneumonitis (3) Pleural effusion, right Is this a current diagnosis for this admission?: Yes Plan: Moderate to large right-sided effusion with decreased breath sounds at the bases and in the lateral right chest wall family at this time does not want thoracentesis They would like to evaluate the proximal patient's progress over the next 24 hours
== END 2017-11-23 07:58 | DRG 698 ==
LOC: ER 02:46 → EH 06:09 → ICU 07:59
PROVIDERS: ADMIT Internal Medicine; ATTEND Internal Medicine
PROC: 0BH17EZ Insertion of Endotracheal Airway into Trachea, Via Natural or Artificial Opening (ICD-10-PCS; principal; 2017-11-20)
PROC: 5A1945Z Respiratory Ventilation, 24-96 Consecutive Hours (ICD-10-PCS; 2017-11-20)
PROC: 02HV33Z Insertion of Infusion Device into Superior Vena Cava, Percutaneous Approach (ICD-10-PCS; 2017-11-20)
DX: T83.511A Infection and inflammatory reaction due to indwelling urethral catheter, initial encounter (principal); A41.9 Sepsis, unspecified organism; J96.01 Acute respiratory failure with hypoxia; R65.21 Severe sepsis with septic shock; J69.0 Pneumonitis due to inhalation of food and vomit; J90 Pleural effusion, not elsewhere classified; N39.0 Urinary tract infection, site not specified; N31.9 Neuromuscular dysfunction of bladder, unspecified; N40.1 Benign prostatic hyperplasia with lower urinary tract symptoms; Y84.6 Urinary catheterization as the cause of abnormal reaction of the patient, or of later complication, without mention of misadventure at the time of the procedure; Z66 Do not resuscitate; E11.9 Type 2 diabetes mellitus without complications; I69.320 Aphasia following cerebral infarction; C61 Malignant neoplasm of prostate; Z87.891 Personal history of nicotine dependence; Z51.5 Encounter for palliative care; Z87.440 Personal history of urinary (tract) infections
CPT/HCPCS: 36415; 71045; 80053; 81001; 82140; 82150; 82550; 82553; 82803; 82962; 83036; 83605; 83690; 83735; 84100; 84439; 84443; 84484; 85025; 87040; 87070; 87077; 87086; 87088; 87186; 87205; 93005; 93010; 94002; 94003; 96365; 96366; 96367; 96375; 99285; C1751; C1769; J1335; J1642; J1650; J1940; J2060; J2250; J2270; J2543; J3370; J3490; J7030; J7060